=== PATIENT | male | born 1960 | race Two or more races ===

== ENCOUNTER 2024-05-08 05:02 | Day surgery (SDC) | payer MEDICARE, OTHER ==
[2024-04-28 16:06] VITALS: BMI 41.1
[2024-05-08 07:30] VITALS: BP 145/75; PULSE 73; RESP 17; TEMP 97.7
== END 2024-05-08 11:25 | disposition home or self-care (01) ==
LOC: JASU-ENDO 05:02
PROVIDERS: ATTEND Student in an Organized Health Care Education/Training Program
DX: Z53.8 Procedure and treatment not carried out for other reasons (principal)
CPT/HCPCS: 36415; 82010; 82962

== ENCOUNTER 2024-06-26 04:55 | Day surgery (SDC) | payer MEDICARE, OTHER ==
[2024-06-24 13:01] VITALS: BMI 41.1
[2024-06-26 09:32] VITALS: BP 117/62; PULSE 70; RESP 20; TEMP 97.9
== END 2024-06-26 09:36 | disposition home or self-care (01) ==
LOC: JASU-ENDO 04:55
PROVIDERS: ATTEND Student in an Organized Health Care Education/Training Program
PROC: 0DBL8ZX Excision of Transverse Colon, Via Natural or Artificial Opening Endoscopic, Diagnostic (ICD-10-PCS; 2024-06-26)
PROC: 0DBN8ZX Excision of Sigmoid Colon, Via Natural or Artificial Opening Endoscopic, Diagnostic (ICD-10-PCS; principal; 2024-06-26 08:30)
DX: Z12.11 Encounter for screening for malignant neoplasm of colon (principal); K63.5 Polyp of colon
CPT/HCPCS: 82962; 88305-TC